=== PATIENT | male | born 1975 | race Caucasian/White ===

== ENCOUNTER → 2016-06-18 | Outpatient (REF) | payer MEDICARE, MEDICAID ==
[2016-06-18 18:28] LABS: CALCIUM OXALATE CRYSTALS SMALL
== END ==
LOC: M SMT 17:16
PROVIDERS: ATTEND Nurse Practitioner Family
DX: R32 Unspecified urinary incontinence (principal)
CPT/HCPCS: 81001; 87086; G0463

== ENCOUNTER 2016-07-03 02:01 | Emergency (ER) | payer MEDICARE, MEDICAID ==
--- NOTE | 2016-07-03 05:12 | EDDOCDS ---
Nurse's Notes [facility] Name: Tyrone Yu Jr Age: 41 yrs Sex: Male : 1975 Arrival Date: 07/03/2016 Time: 02:01 Bed 11 Private MD: Diagnosis: Polyuria;Adverse effect of caffeine Presentation: 07/03 02:11 Presenting complaint: Patient states: constant urination that started yesterday. ko2 Suicide/Homicide risk assessment- the patient denies having any suicidal and/or homicidal ideations and does not present with any other emotional, behavioral or mental health complaints. Status: Patient is not a senior administrative services officer or dependent. Transition of care: patient was not received from another setting of care. 02:11 Acuity: JADE Level 4 ko2 02:11 Method Of Arrival: Walkin/Carried/Asstd ko2 05:11 Adult Sepsis Screening: The patient does not have new or worsening altered mentation. mv5 Patient's respiratory rate is less than 22. Systolic blood pressure is greater than 100. Patient has a qSOFA score of 0- Negative Sepsis Screen. Triage Assessment: 02:14 General: Appears in no apparent distress. Pain: Denies pain. HIV screening NA for this ko2 visit. Neurological: No deficits noted. Respiratory: Airway is patent Respiratory effort is even, unlabored. Derm: Skin is normal. Historical: - Allergies: Sudafed; - Home Meds: 1. oxybutynin chloride 5 mg Oral tr24 1 tab once daily 2. levothyroxine 25 mcg Oral tab 3. Allergy Medication 10 mg oral cap 4. Advair Diskus 250-50 mcg/dose Inhl dsdv - PMHx: Allergies, Seasonal; Hypothyroidism; - PSHx: none; - Social history: Smoking status: Patient states was never smoker of tobacco. No barriers to communication noted, The patient speaks fluent Portuguese, Speaks appropriately for age. - Family history: Not pertinent. - : The pt / caregiver states he / she is not on anticoagulants. Home medication list is obtained from the patient, pill bottles. - Exposure Risk Screening:: None identified. Screenin:51 Screening information is obtained from the patient. Fall risk: No risks identified. mv5 Assistance ADL's: requires no assistance with activities of daily living. Abuse/DV Screen: The patient / caregiver reports he/she is: not in a situation that causes fear, pain or injury. Nutritional screening: No deficits noted. Advance Directives: There is no active DNR order. home support is adequate. Assessment: 04:51 General: Appears in no apparent distress, comfortable, Behavior is cooperative, mv5 pleasant. Pain: Denies pain. Neurological: Level of Consciousness is awake, alert, Oriented to person, place, time. Respiratory: Airway is patent Respiratory effort is even, unlabored, Respiratory pattern is regular, symmetrical. GI: No deficits noted. : Reports urinary frequency. Derm: Skin is pink, warm & dry. 04:53 General: MD in to discuss findings and plan of care.. mv5 Vital Signs: 02:14 BP 140 / 78; Pulse 89; Resp 16; Temp 97.3(O); Pulse Ox 97% ; Weight 99.79 kg; Height 6 ko2 ft. 1 in. (185.42 cm); Pain 0/10; 05:10 BP 175 / 80; Pulse 89; Resp 16; Temp 99.8(TE); Pulse Ox 96% on R/A; mv5 02:14 Body Mass Index 29.03 (99.79 kg, 185.42 cm) ko2 Vitals: 02:14 Log In Time: July 03, 2016 at 02:01. ko2 ED Course: 02:04 Patient visited by Lara Hill. gjb 02:04 Patient moved to Waiting gjb 02:10 Patient moved to Triage 1 ko2 02:12 Triage Initiated ko2 02:28 Patient moved to Waiting ko2 04:24 Saray Whipple,RN is Primary Nurse. may 04:24 Patient moved to 11 may 04:30 Patient visited by Kraig Klein PCA. kb5 04:45 [facility] Payment Agreement was scanned into Zentyal and attached to record. pm4 04:47 Omer Shah DO is Attending Physician. cs11 04:47 Patient visited by Omer Shah DO. cs11 04:51 The patient / caregiver is instructed regarding the plan of care and ED course. mv5 04:51 No IV's were initiated during this patient's visit. No procedures done that require mv5 assistance. Point of Care Testing: Blood Glucose: 02:23 Blood Glucose: 96 mg/dL; ko2 Ranges: Order Results: Lab Order: UA; SPEC'M 07/03/16 02:19 Test: APPEARANCE, URINE; Value: CLEAR; Range: CLEAR; Status: F Test: COLOR, URINE; Value: YELLOW; Range: YELLOW; Status: F Test: PH,URINE; Value: 6.0; Range: 5.0-9.0; Units: UNITS; Status: F Test: SPECIFIC GRAVITY URINE AUTO; Value: 1.017; Range: 1.002-1.035; Status: F Test: PROTEIN, URINE AUTO; Value: NEGATIVE; Range: NEGATIVE; Units: mg/dL; Status: F Test: GLUCOSE, URINE (UA) AUTO; Value: NEGATIVE; Range: NEGATIVE; Units: mg/dL; Status: F Test: KETONE, URINE AUTO; Value: NEGATIVE; Range: NEGATIVE; Units: mg/dL; Status: F Test: UROBILINOGEN, URINE AUTO; Value: 0.2; Range: 0.0-2.0; Units: mg/dL; Status: F Test: BILIRUBIN, URINE AUTO; Value: NEGATIVE; Range: NEGATIVE; Status: F Test: NITRITE, URINE AUTO; Value: NEGATIVE; Range: NEGATIVE; Status: F Test: LEUKOCYTE ESTERASE, URINE AUTO; Value: NEGATIVE; Range: NEGATIVE; Status: F Test: BLOOD, URINE BLOOD; Value: NEGATIVE; Range: NEGATIVE; Status: F Test: WBC, URINE AUTO; Value: 1; Range: 0-3; Units: /HPF; Status: F Test: RBC, URINE AUTO; Value: 2; Range: 0-3; Units: /HPF; Status: F Test: BACTERIA, URINE AUTO; Value: NEGATIVE; Range: NEGATIVE; Status: F Test: SQUAMOUS EPITHELIAL CELL UR AU; Value: 0; Range: 0-6; Units: /HPF; Status: F Test: HYALINE CAST, URINE AUTO; Value: 0; Range: 0-1; Units: /LPF; Status: F Lab Order: Fingerstick Blood Sugar; SPEC'M 07/03/16 02:22 Test: BEDSIDE GLUCOSE; Value: 96; Range: 70-105; Units: MG/DL; Status: F Outcome: 04:58 Discharge ordered by Provider. 11 05:10 Discharge Assessment: Patient awake, alert and oriented x 3. No cognitive and/or mv5 functional deficits noted. Patient verbalized understanding of disposition instructions. patient administered narcotics - no. The following High Risk Discharge criteria are identified: None. Discharged to home ambulatory. Condition: stable. Demonstrated understanding of Pt was receptive of discharge instructions/ teaching. No special radiology studies were completed. Property sent home with patient. 05:12 Patient left the ED. mv5 Signatures: Tiffany Servin, RN RN Kraig Jenkins, MANAGER ANIMATION MANAGER ANIMATION kb5 Omer Shah, DO cs11 Vaishali BonillaRN RN elías2 Lara Hill Paul, Reg Reg pm4 Saray Whipple,RN RN mv5 MTDD
--- NOTE | 2016-07-03 05:12 | EDDOCDS ---
Physician Documentation [facility] Name: Tyrone Yu Jr Age: 41 yrs Sex: Male : 1975 Arrival Date: 07/03/2016 Time: 02:01 Bed 11 Private MD: Disposition: 07/03/16 04:58 Discharged to Home/Self Care. Impression: Polyuria, Adverse effect of caffeine. - Condition is Stable. - Medication Reconciliation, Local Pharmacy Hours form. - Follow up: Private Physician; When: Call to arrange an appointment; Reason: Recheck today's complaints. - Problem is an ongoing problem. - Symptoms are unchanged. Historical: - Allergies: Sudafed; - Home Meds: 1. oxybutynin chloride 5 mg Oral tr24 1 tab once daily 2. levothyroxine 25 mcg Oral tab 3. Allergy Medication 10 mg oral cap 4. Advair Diskus 250-50 mcg/dose Inhl dsdv - PMHx: Allergies, Seasonal; Hypothyroidism; - PSHx: none; - Social history: Smoking status: Patient states was never smoker of tobacco. No barriers to communication noted, The patient speaks fluent Polish, Speaks appropriately for age. - Family history: Not pertinent. - : The pt / caregiver states he / she is not on anticoagulants. Home medication list is obtained from the patient, pill bottles. - Exposure Risk Screening:: None identified. Vital Signs: 07/03 02:14 BP 140 / 78; Pulse 89; Resp 16; Temp 97.3(O); Pulse Ox 97% ; Weight 99.79 kg / 220 lbs; ko2 Height 6 ft. 1 in. (185.42 cm); Pain 0/10; 05:10 BP 175 / 80; Pulse 89; Resp 16; Temp 99.8(TE); Pulse Ox 96% on R/A; mv5 02:14 Body Mass Index 29.03 (99.79 kg, 185.42 cm) ko2 MDM: 02:16 Accucheck ordered. btw 02:28 UA Ordered. EDMS 02:28 Urine Culture Ordered. EDMS 02:32 Fingerstick Blood Sugar Ordered. EDMS 03:59 UA Reviewed. cs11 03:59 Fingerstick Blood Sugar Reviewed. cs11 04:45 [facility] Payment Agreement was scanned into [employer] and attached to record. pm4 04:47 Financial registration complete. pm4 Point of Care Testing: Blood Glucose: 02:23 Blood Glucose: 96 mg/dL; ko2 Ranges: Signatures: Dispatcher MedHost Adonis Watt PA PA btw Omer Shah, DO cs11 Vaishali Bonilla,RN RN ko2 Toño Estrada, Reg Reg pm4 Saray WhippleRN RN mv5 The chart was reviewed and I authenticate all verbal orders and agree with the evaluation and treatment provided.Attachments: 04:45 [facility] Payment Agreement pm4 MTDD
--- NOTE | 2016-07-05 06:13 | EDDOCDS ---
Physician Documentation [facility] Name: Tyrone Yu Jr Age: 41 yrs Sex: Male : 1975 Arrival Date: 07/03/2016 Time: 02:01 Bed 11 Private MD: Disposition: 07/03/16 04:58 Discharged to Home/Self Care. Impression: Polyuria, Adverse effect of caffeine. - Condition is Stable. - Medication Reconciliation, Local Pharmacy Hours form. - Follow up: Private Physician; When: Call to arrange an appointment; Reason: Recheck today's complaints. - Problem is an ongoing problem. - Symptoms are unchanged. Historical: - Allergies: Sudafed; - Home Meds: 1. oxybutynin chloride 5 mg Oral tr24 1 tab once daily 2. levothyroxine 25 mcg Oral tab 3. Allergy Medication 10 mg oral cap 4. Advair Diskus 250-50 mcg/dose Inhl dsdv - PMHx: Allergies, Seasonal; Hypothyroidism; - PSHx: none; - Social history: Smoking status: Patient states was never smoker of tobacco. No barriers to communication noted, The patient speaks fluent Welsh, Speaks appropriately for age. - Family history: Not pertinent. - : The pt / caregiver states he / she is not on anticoagulants. Home medication list is obtained from the patient, pill bottles. - Exposure Risk Screening:: None identified. Vital Signs: 07/03 02:14 BP 140 / 78; Pulse 89; Resp 16; Temp 97.3(O); Pulse Ox 97% ; Weight 99.79 kg / 220 lbs; ko2 Height 6 ft. 1 in. (185.42 cm); Pain 0/10; 05:10 BP 175 / 80; Pulse 89; Resp 16; Temp 99.8(TE); Pulse Ox 96% on R/A; mv5 02:14 Body Mass Index 29.03 (99.79 kg, 185.42 cm) ko2 MDM: 02:16 Accucheck ordered. btw 02:28 UA Ordered. EDMS 02:28 Urine Culture Ordered. EDMS 02:32 Fingerstick Blood Sugar Ordered. EDMS 03:59 UA Reviewed. cs11 03:59 Fingerstick Blood Sugar Reviewed. cs11 04:45 [facility] Payment Agreement was scanned into Glooko and attached to record. pm4 04:47 Financial registration complete. pm4 15:34 T-Sheet-- Draft Copy was scanned into Glooko and attached to record. gb Point of Care Testing: Blood Glucose: 02:23 Blood Glucose: 96 mg/dL; ko2 Ranges: Signatures: Dispatcher [employer]Host EDMS Liv Lee, Reg Reg gb Adonis Lugo PA PA btw Omer Shah, DO cs11 Vaishali BonillaRN RN ko2 Toño Estrada, Reg Reg pm4 Saray Whipple,RN RN mv5 The chart was reviewed and I authenticate all verbal orders and agree with the evaluation and treatment provided.Attachments: 04:45 [facility] [place] Agreement pm4 15:34 T-Sheet-- Draft Copy gb Chart Complete MTDD
--- NOTE | 2016-07-05 06:13 | EDDOCDS ---
Physician Documentation [facility] Name: Tyrone Yu Jr Age: 41 yrs Sex: Male : 1975 Arrival Date: 07/03/2016 Time: 02:01 Bed 11 Private MD: Disposition: 07/03/16 04:58 Discharged to Home/Self Care. Impression: Polyuria, Adverse effect of caffeine. - Condition is Stable. - Medication Reconciliation, Local Pharmacy Hours form. - Follow up: Private Physician; When: Call to arrange an appointment; Reason: Recheck today's complaints. - Problem is an ongoing problem. - Symptoms are unchanged. Historical: - Allergies: Sudafed; - Home Meds: 1. oxybutynin chloride 5 mg Oral tr24 1 tab once daily 2. levothyroxine 25 mcg Oral tab 3. Allergy Medication 10 mg oral cap 4. Advair Diskus 250-50 mcg/dose Inhl dsdv - PMHx: Allergies, Seasonal; Hypothyroidism; - PSHx: none; - Social history: Smoking status: Patient states was never smoker of tobacco. No barriers to communication noted, The patient speaks fluent Mohawk, Speaks appropriately for age. - Family history: Not pertinent. - : The pt / caregiver states he / she is not on anticoagulants. Home medication list is obtained from the patient, pill bottles. - Exposure Risk Screening:: None identified. Vital Signs: 07/03 02:14 BP 140 / 78; Pulse 89; Resp 16; Temp 97.3(O); Pulse Ox 97% ; Weight 99.79 kg / 220 lbs; ko2 Height 6 ft. 1 in. (185.42 cm); Pain 0/10; 05:10 BP 175 / 80; Pulse 89; Resp 16; Temp 99.8(TE); Pulse Ox 96% on R/A; mv5 02:14 Body Mass Index 29.03 (99.79 kg, 185.42 cm) ko2 MDM: 02:16 Accucheck ordered. btw 02:28 UA Ordered. EDMS 02:28 Urine Culture Ordered. EDMS 02:32 Fingerstick Blood Sugar Ordered. EDMS 03:59 UA Reviewed. cs11 03:59 Fingerstick Blood Sugar Reviewed. cs11 04:45 [facility] Payment Agreement was scanned into pbsi and attached to record. pm4 04:47 Financial registration complete. pm4 15:34 T-Sheet-- Draft Copy was scanned into pbsi and attached to record. gb Point of Care Testing: Blood Glucose: 02:23 Blood Glucose: 96 mg/dL; ko2 Ranges: Signatures: Dispatcher MedHost EDMS Liv Lee, Reg Reg gb Adonis Lugo PA PA btw Omer Shah, DO cs11 Vaishali BonillaRN RN ko2 Toño Estrada, Reg Reg pm4 Saray Whipple,RN RN mv5 The chart was reviewed and I authenticate all verbal orders and agree with the evaluation and treatment provided.Attachments: 04:45 [facility] [place] pm4 15:34 T-Sheet-- Draft Copy gb Chart Complete MTDD
--- NOTE | 2016-07-05 06:13 | EDDOCDS ---
Nurse's Notes [facility] Name: Tyrone Yu Jr Age: 41 yrs Sex: Male : 1975 Arrival Date: 07/03/2016 Time: 02:01 Bed 11 Private MD: Diagnosis: Polyuria;Adverse effect of caffeine Presentation: 07/03 02:11 Presenting complaint: Patient states: constant urination that started yesterday. ko2 Suicide/Homicide risk assessment- the patient denies having any suicidal and/or homicidal ideations and does not present with any other emotional, behavioral or mental health complaints. Status: Patient is not a instrument and control service person or dependent. Transition of care: patient was not received from another setting of care. 02:11 Acuity: JADE Level 4 ko2 02:11 Method Of Arrival: Walkin/Carried/Asstd ko2 05:11 Adult Sepsis Screening: The patient does not have new or worsening altered mentation. mv5 Patient's respiratory rate is less than 22. Systolic blood pressure is greater than 100. Patient has a qSOFA score of 0- Negative Sepsis Screen. Triage Assessment: 02:14 General: Appears in no apparent distress. Pain: Denies pain. HIV screening NA for this ko2 visit. Neurological: No deficits noted. Respiratory: Airway is patent Respiratory effort is even, unlabored. Derm: Skin is normal. Historical: - Allergies: Sudafed; - Home Meds: 1. oxybutynin chloride 5 mg Oral tr24 1 tab once daily 2. levothyroxine 25 mcg Oral tab 3. Allergy Medication 10 mg oral cap 4. Advair Diskus 250-50 mcg/dose Inhl dsdv - PMHx: Allergies, Seasonal; Hypothyroidism; - PSHx: none; - Social history: Smoking status: Patient states was never smoker of tobacco. No barriers to communication noted, The patient speaks fluent Iraqi, Speaks appropriately for age. - Family history: Not pertinent. - : The pt / caregiver states he / she is not on anticoagulants. Home medication list is obtained from the patient, pill bottles. - Exposure Risk Screening:: None identified. Screenin:51 Screening information is obtained from the patient. Fall risk: No risks identified. mv5 Assistance ADL's: requires no assistance with activities of daily living. Abuse/DV Screen: The patient / caregiver reports he/she is: not in a situation that causes fear, pain or injury. Nutritional screening: No deficits noted. Advance Directives: There is no active DNR order. home support is adequate. Assessment: 04:51 General: Appears in no apparent distress, comfortable, Behavior is cooperative, mv5 pleasant. Pain: Denies pain. Neurological: Level of Consciousness is awake, alert, Oriented to person, place, time. Respiratory: Airway is patent Respiratory effort is even, unlabored, Respiratory pattern is regular, symmetrical. GI: No deficits noted. : Reports urinary frequency. Derm: Skin is pink, warm & dry. 04:53 General: MD in to discuss findings and plan of care.. mv5 Vital Signs: 02:14 BP 140 / 78; Pulse 89; Resp 16; Temp 97.3(O); Pulse Ox 97% ; Weight 99.79 kg; Height 6 ko2 ft. 1 in. (185.42 cm); Pain 0/10; 05:10 BP 175 / 80; Pulse 89; Resp 16; Temp 99.8(TE); Pulse Ox 96% on R/A; mv5 02:14 Body Mass Index 29.03 (99.79 kg, 185.42 cm) ko2 Vitals: 02:14 Log In Time: July 03, 2016 at 02:01. ko2 ED Course: 02:04 Patient visited by Lara Hill. gjb 02:04 Patient moved to Waiting gjb 02:10 Patient moved to Triage 1 ko2 02:12 Triage Initiated ko2 02:28 Patient moved to Waiting ko2 04:24 Saray Whipple,RN is Primary Nurse. may 04:24 Patient moved to 11 may 04:30 Patient visited by Kraig Klein PCA. kb5 04:45 [facility] Payment Agreement was scanned into Arcaris and attached to record. pm4 04:47 Omer Shah DO is Attending Physician. cs11 04:47 Patient visited by Omer Shah DO. cs11 04:51 The patient / caregiver is instructed regarding the plan of care and ED course. mv5 04:51 No IV's were initiated during this patient's visit. No procedures done that require mv5 assistance. 15:34 T-Sheet-- Draft Copy was scanned into Arcaris and attached to record. gb Point of Care Testing: Blood Glucose: 02:23 Blood Glucose: 96 mg/dL; ko2 Ranges: Order Results: Lab Order: UA; SPEC'M 07/03/16 02:19 Test: APPEARANCE, URINE; Value: CLEAR; Range: CLEAR; Status: F Test: COLOR, URINE; Value: YELLOW; Range: YELLOW; Status: F Test: PH,URINE; Value: 6.0; Range: 5.0-9.0; Units: UNITS; Status: F Test: SPECIFIC GRAVITY URINE AUTO; Value: 1.017; Range: 1.002-1.035; Status: F Test: PROTEIN, URINE AUTO; Value: NEGATIVE; Range: NEGATIVE; Units: mg/dL; Status: F Test: GLUCOSE, URINE (UA) AUTO; Value: NEGATIVE; Range: NEGATIVE; Units: mg/dL; Status: F Test: KETONE, URINE AUTO; Value: NEGATIVE; Range: NEGATIVE; Units: mg/dL; Status: F Test: UROBILINOGEN, URINE AUTO; Value: 0.2; Range: 0.0-2.0; Units: mg/dL; Status: F Test: BILIRUBIN, URINE AUTO; Value: NEGATIVE; Range: NEGATIVE; Status: F Test: NITRITE, URINE AUTO; Value: NEGATIVE; Range: NEGATIVE; Status: F Test: LEUKOCYTE ESTERASE, URINE AUTO; Value: NEGATIVE; Range: NEGATIVE; Status: F Test: BLOOD, URINE BLOOD; Value: NEGATIVE; Range: NEGATIVE; Status: F Test: WBC, URINE AUTO; Value: 1; Range: 0-3; Units: /HPF; Status: F Test: RBC, URINE AUTO; Value: 2; Range: 0-3; Units: /HPF; Status: F Test: BACTERIA, URINE AUTO; Value: NEGATIVE; Range: NEGATIVE; Status: F Test: SQUAMOUS EPITHELIAL CELL UR AU; Value: 0; Range: 0-6; Units: /HPF; Status: F Test: HYALINE CAST, URINE AUTO; Value: 0; Range: 0-1; Units: /LPF; Status: F Lab Order: Urine Culture; SPEC'M 07/03/16 02:19 Test: URINE CULTURE; Value: <EXTERNAL COMMENT eCWMed> FULL REPORT IN LAB NOTES (eCW and Medent).; Status: F Test: URINE CULTURE; Value: URINE CULTURE RESULT NO GROWTH; Status: F Lab Order: Fingerstick Blood Sugar; SPEC'M 07/03/16 02:22 Test: BEDSIDE GLUCOSE; Value: 96; Range: 70-105; Units: MG/DL; Status: F Outcome: 04:58 Discharge ordered by Provider. cs11 05:10 Discharge Assessment: Patient awake, alert and oriented x 3. No cognitive and/or mv5 functional deficits noted. Patient verbalized understanding of disposition instructions. patient administered narcotics - no. The following High Risk Discharge criteria are identified: None. Discharged to home ambulatory. Condition: stable. Demonstrated understanding of Pt was receptive of discharge instructions/ teaching. No special radiology studies were completed. Property sent home with patient. 05:12 Patient left the ED. mv5 Signatures: Tiffany Servin, RN RN Liv Mattson, Reg Reg gb Kraig Klein, ERADICATOR ERADICATOR kb5 Omer Shah, DO DO cs11 Vaishali Bonilla,RN RN Lara Rogers Paul, Reg Reg pm4 Saray Whipple,RN RN mv5 Chart Complete [facility]
== END 2016-07-03 05:12 | disposition home or self-care (01) ==
LOC: M ED 02:01
DX: R35.8 Other polyuria (principal); J30.2 Other seasonal allergic rhinitis; E03.9 Hypothyroidism, unspecified; Z79.899 Other long term (current) drug therapy; Z88.8 Allergy status to other drugs, medicaments and biological substances

== ENCOUNTER → 2016-10-03 | Outpatient (REF) | payer MEDICARE, MEDICAID | LOC: M SFHCADAM 10:32 | PROVIDERS: ATTEND Physician Assistant | DX: K52.9 Noninfective gastroenteritis and colitis, unspecified (principal) | CPT/HCPCS: 82784; 86256; 87507; G0463 ==

== ENCOUNTER → 2017-04-07 | Outpatient (REF) | payer MEDICARE, MEDICAID ==
[2017-04-07 13:48] LABS: FREE T4 1.12 NG/DL (0.76-1.46)
== END ==
LOC: M SFHCADAM 09:38
PROVIDERS: ATTEND Physician Assistant Medical
DX: E03.9 Hypothyroidism, unspecified (principal)

== ENCOUNTER → 2017-07-22 | Outpatient (REF) | payer MEDICARE, MEDICAID ==
[2017-07-22 20:14] LABS: ALBUMIN 4.8 GM/DL (3.2-5.2); ALBUMIN/GLOBULIN RATIO 1.45 (1.00-1.93); ALKALINE PHOSPHATASE 73 U/L (45-117); ALT/SGPT 43 U/L (12-78); ANION GAP 7 MEQ/L (8-16); AST/SGOT 22 U/L (7-37); BILIRUBIN,TOTAL 0.9 MG/DL (0.2-1.0); BLOOD UREA NITROGEN 8 MG/DL (7-18); CALCIUM LEVEL 9.3 MG/DL (8.5-10.1); CARBON DIOXIDE LEVEL 32 MEQ/L (21-32); CHLORIDE LEVEL 101 MEQ/L (98-107); CREATININE FOR GFR 1.04 MG/DL (0.70-1.30); FREE T4 1.13 NG/DL (0.76-1.46); GLOMERULAR FILTRATION RATE > 60.0 (>60); GLUCOSE, FASTING 75 MG/DL (70-100); POTASSIUM SERUM 3.9 MEQ/L (3.5-5.1); SODIUM LEVEL 140 MEQ/L (136-145); TOTAL PROTEIN 8.1 GM/DL (6.4-8.2)
[2017-07-22 21:02] LABS: HEMOGLOBIN 15.7 g/dl (14.0-18.0); MEAN CORPUSCULAR HEMOGLOBIN 29.3 pg (27.0-33.0); MEAN CORPUSCULAR HGB CONC 32.7 g/dl (32.0-36.5); MEAN CORPUSCULAR VOLUME 89.6 fl (80.0-96.0); PLATELET COUNT, AUTOMATED 373 10^3/uL (150-450); RED BLOOD COUNT 5.36 10^6/uL (4.30-6.10); RED CELL DISTRIBUTION WIDTH 12.4 % (11.5-14.5); WHITE BLOOD COUNT 6.2 10^3/uL (4.0-10.0)
== END ==
LOC: M SFHCADAM 13:53
DX: J01.80 Other acute sinusitis (principal); E03.9 Hypothyroidism, unspecified; K21.9 Gastro-esophageal reflux disease without esophagitis
CPT/HCPCS: 84443

== ENCOUNTER → 2017-08-02 | Outpatient (REF) | payer MEDICARE, MEDICAID | LOC: M LAB REF 14:11 | DX: A09 Infectious gastroenteritis and colitis, unspecified (principal) | CPT/HCPCS: 87507 ==

== ENCOUNTER → 2018-05-14 | Outpatient (REF) | payer MEDICARE, MEDICAID ==
[2018-05-14 17:53] LABS: APPEARANCE, URINE CLEAR (CLEAR); BACTERIA, URINE AUTO NEGATIVE (NEGATIVE); BILIRUBIN, URINE AUTO NEGATIVE (NEGATIVE); BLOOD, URINE BLOOD NEGATIVE (NEGATIVE); COLOR, URINE YELLOW (YELLOW); GLUCOSE, URINE (UA) AUTO NEGATIVE (NEGATIVE); KETONE, URINE AUTO NEGATIVE (NEGATIVE); LEUKOCYTE ESTERASE, URINE AUTO NEGATIVE (NEGATIVE); MUCUS, URINE SMALL (NEGATIVE); NITRITE, URINE AUTO NEGATIVE (NEGATIVE); PROTEIN, URINE AUTO NEGATIVE (NEGATIVE); RBC, URINE AUTO 0 /HPF (0-3); SPECIFIC GRAVITY URINE AUTO 1.015 (1.002-1.035); SQUAMOUS EPITHELIAL CELL UR AU 0 /HPF (0-6); UROBILINOGEN, URINE AUTO 0.2 mg/dL (0.0-2.0); WBC, URINE AUTO 0 /HPF (0-3)
== END ==
LOC: M LAB REF 16:43
PROVIDERS: ATTEND Physician Assistant
DX: N39.0 Urinary tract infection, site not specified (principal)

== ENCOUNTER → 2020-09-29 | Outpatient (REF) | payer MEDICARE, MEDICAID ==
[2020-09-29 13:58] LABS: BASO # 0.1 10^3/uL (0.0-0.2); BASO % 1.5 % (0.0-1.0); EOS # 0.1 10^3/uL (0.0-0.5); EOS % 1.9 % (0.0-3.0); HEMATOCRIT 48.5 % (42.0-52.0); HEMOGLOBIN 15.3 g/dl (13.5-17.5); LYMPH # 1.4 10^3/uL (1.5-5.0); LYMPH % 25.5 % (24.0-44.0); MEAN CORPUSCULAR HEMOGLOBIN 28.9 pg (27.0-33.0); MEAN CORPUSCULAR HGB CONC 31.5 g/dl (32.0-36.5); MEAN CORPUSCULAR VOLUME 91.5 fl (80.0-96.0); MONO # 0.4 10^3/uL (0.0-0.8); MONO % 7.9 % (2.0-8.0); NEUTROPHILS # 3.3 10^3/uL (1.5-8.5); NEUTROPHILS % 62.6 % (36.0-66.0); PLATELET COUNT, AUTOMATED 291 10^3/uL (150-450); WHITE BLOOD COUNT 5.3 10^3/uL (4.0-10.0)
[2020-09-29 14:08] LABS: HEMOGLOBIN A1c 4.8 %
[2020-09-29 14:25] LABS: ALBUMIN 4.4 GM/DL (3.2-5.2); ALT/SGPT 35 U/L (12-78); BILIRUBIN,TOTAL 0.7 MG/DL (0.2-1.0); BLOOD UREA NITROGEN 10 MG/DL (7-18); CALCIUM LEVEL 8.9 MG/DL (8.5-10.1); CARBON DIOXIDE LEVEL 31 MEQ/L (21-32); CHLORIDE LEVEL 106 MEQ/L (98-107); CHOLESTEROL LEVEL 226 MG/DL (<200); CHOLESTEROL RISK RATIO 3.766 (<5); CREATININE FOR GFR 1.19 MG/DL (0.70-1.30); FREE T4 0.77 NG/DL (0.76-1.46); GLOMERULAR FILTRATION RATE > 60.0 (>60); GLUCOSE, FASTING 93 MG/DL (70-100); HDL CHOLESTEROL 60 MG/DL (>40); LDL CHOLESTEROL 150 MG/DL (<100); NON-HDL-C 166 MG/DL; SODIUM LEVEL 140 MEQ/L (136-145); TOTAL PROTEIN 7.3 GM/DL (6.4-8.2); TRIGLYCERIDES LEVEL 82 MG/DL (<150)
== END ==
LOC: M SFHCPLAZ 09:58
PROVIDERS: ATTEND Nurse Practitioner Family
DX: R10.9 Unspecified abdominal pain (principal); E03.9 Hypothyroidism, unspecified; Z13.1 Encounter for screening for diabetes mellitus; Z13.220 Encounter for screening for lipoid disorders
CPT/HCPCS: 36415; 80053; 80061; 83036; 84439; 84443; 85025; 86140; G0463

== ENCOUNTER → 2021-01-24 | Outpatient (REF) | payer MEDICARE, MEDICAID ==
[2021-01-24 17:47] LABS: AMORPHOUS SEDIMENT SMALL (NEGATIVE); APPEARANCE, URINE TURBID (CLEAR); BACTERIA, URINE AUTO NEGATIVE (NEGATIVE); BILIRUBIN, URINE AUTO NEGATIVE (NEGATIVE); BLOOD, URINE BLOOD NEGATIVE (NEGATIVE); COLOR, URINE YELLOW (YELLOW); GLUCOSE, URINE (UA) AUTO NEGATIVE (NEGATIVE); KETONE, URINE AUTO NEGATIVE (NEGATIVE); LEUKOCYTE ESTERASE, URINE AUTO NEGATIVE (NEGATIVE); MUCUS, URINE SMALL (NEGATIVE); NITRITE, URINE AUTO NEGATIVE (NEGATIVE); PROTEIN, URINE AUTO 1+ mg/dL (NEGATIVE); RBC, URINE AUTO 0 /HPF (0-3); SPECIFIC GRAVITY URINE AUTO 1.027 (1.002-1.035); SQUAMOUS EPITHELIAL CELL UR AU 0 /HPF (0-6); WBC, URINE AUTO 0 /HPF (0-3)
== END ==
LOC: M SFHCPLAZ 17:03
PROVIDERS: ATTEND Nurse Practitioner Family
DX: R32 Unspecified urinary incontinence (principal)

== ENCOUNTER → 2021-01-31 | Outpatient (CLI) | payer MEDICARE, MEDICAID ==
[2021-01-31 15:19] LABS: BASO # 0.1 10^3/uL (0.0-0.2); BASO % 1.3 % (0.0-1.0); EOS # 0.1 10^3/uL (0.0-0.5); EOS % 1.5 % (0.0-3.0); HEMATOCRIT 49.1 % (42.0-52.0); HEMOGLOBIN 15.8 g/dl (13.5-17.5); LYMPH # 1.3 10^3/uL (1.5-5.0); LYMPH % 21.1 % (24.0-44.0); MEAN CORPUSCULAR HEMOGLOBIN 29.2 pg (27.0-33.0); MEAN CORPUSCULAR HGB CONC 32.2 g/dl (32.0-36.5); MEAN CORPUSCULAR VOLUME 90.8 fl (80.0-96.0); MONO # 0.5 10^3/uL (0.0-0.8); MONO % 7.9 % (2.0-8.0); NEUTROPHILS # 4.1 10^3/uL (1.5-8.5); NEUTROPHILS % 67.5 % (36.0-66.0); PLATELET COUNT, AUTOMATED 359 10^3/uL (150-450); RED BLOOD COUNT 5.41 10^6/uL (4.30-6.10); WHITE BLOOD COUNT 6.1 10^3/uL (4.0-10.0)
[2021-01-31 15:58] LABS: ALBUMIN 4.3 GM/DL (3.2-5.2); ALT/SGPT 38 U/L (12-78); BILIRUBIN,TOTAL 0.9 MG/DL (0.2-1.0); BLOOD UREA NITROGEN 9 MG/DL (7-18); CALCIUM LEVEL 9.1 MG/DL (8.5-10.1); CARBON DIOXIDE LEVEL 31 MEQ/L (21-32); CHLORIDE LEVEL 102 MEQ/L (98-107); CREATININE FOR GFR 1.24 MG/DL (0.70-1.30); GLOMERULAR FILTRATION RATE > 60.0 (>60); GLUCOSE, FASTING 81 MG/DL (70-100); POTASSIUM SERUM 4.3 MEQ/L (3.5-5.1); SODIUM LEVEL 137 MEQ/L (136-145); TOTAL PROTEIN 7.3 GM/DL (6.4-8.2)
== END ==
LOC: M PLALAB 12:14
PROVIDERS: ATTEND Physician Assistant
DX: R32 Unspecified urinary incontinence (principal); R19.7 Diarrhea, unspecified
CPT/HCPCS: 36415; 51798; 80053; 81002; 85025; G0103; G0463

== ENCOUNTER → 2021-02-01 | Outpatient (REF) | payer MEDICARE, MEDICAID | LOC: M LAB REF 13:14 | PROVIDERS: ATTEND Physician Assistant | DX: R19.7 Diarrhea, unspecified (principal) ==

== ENCOUNTER → 2021-08-30 | Outpatient (CLI) | payer MEDICARE, MEDICAID ==
[2021-08-30 14:36] LABS: BASO # 0.1 10^3/uL (0.0-0.2); EOS # 0.2 10^3/uL (0.0-0.5); EOS % 3.2 % (0.0-3.0); HEMATOCRIT 45.4 % (42.0-52.0); HEMOGLOBIN 15.1 g/dl (13.5-17.5); LYMPH # 1.5 10^3/uL (1.5-5.0); MEAN CORPUSCULAR HEMOGLOBIN 29.8 pg (27.0-33.0); MEAN CORPUSCULAR HGB CONC 33.3 g/dl (32.0-36.5); MEAN CORPUSCULAR VOLUME 89.5 fl (80.0-96.0); MONO # 0.5 10^3/uL (0.0-0.8); MONO % 8.2 % (2.0-8.0); NEUTROPHILS # 3.9 10^3/uL (1.5-8.5); NEUTROPHILS % 63.1 % (36.0-66.0); PLATELET COUNT, AUTOMATED 295 10^3/uL (150-450); RED BLOOD COUNT 5.07 10^6/uL (4.30-6.10); WHITE BLOOD COUNT 6.2 10^3/uL (4.0-10.0)
[2021-08-30 15:10] LABS: ALBUMIN 4.5 GM/DL (3.2-5.2); ALT/SGPT 55 U/L (12-78); BILIRUBIN,TOTAL 1.1 MG/DL (0.2-1.0); BLOOD UREA NITROGEN 9 MG/DL (7-18); CALCIUM LEVEL 9.5 MG/DL (8.5-10.1); CARBON DIOXIDE LEVEL 30 MEQ/L (21-32); CHLORIDE LEVEL 108 MEQ/L (98-107); CHOLESTEROL LEVEL 237 MG/DL (<200); CHOLESTEROL RISK RATIO 4.232 (<5); CREATININE FOR GFR 1.15 MG/DL (0.70-1.30); FREE T4 0.95 NG/DL (0.76-1.46); GLOMERULAR FILTRATION RATE > 60.0 (>60); GLUCOSE, FASTING 95 MG/DL (70-100); HDL CHOLESTEROL 56 MG/DL (>40); LDL CHOLESTEROL 160 MG/DL (<100); NON-HDL-C 181 MG/DL; POTASSIUM SERUM 3.8 MEQ/L (3.5-5.1); SODIUM LEVEL 142 MEQ/L (136-145); TOTAL PROTEIN 7.3 GM/DL (6.4-8.2); TRIGLYCERIDES LEVEL 106 MG/DL (<150)
[2021-08-31 23:08] LABS: PSA TOTAL 0.8 ng/mL (0.0-4.0)
== END ==
LOC: M PLALAB 11:17
PROVIDERS: ATTEND Nurse Practitioner Family
DX: R32 Unspecified urinary incontinence (principal); E03.9 Hypothyroidism, unspecified; E78.5 Hyperlipidemia, unspecified